=== PATIENT | male | born 1960 | race Caucasian/White ===

== ENCOUNTER 2025-02-25 14:50 | Emergency (ER) | payer BC, SELFPAY ==
[2025-02-25 14:53] VITALS: BP 127/78
[2025-02-25 15:04] VITALS: BMI 29.0
[2025-02-25 15:06] VITALS: BP 115/55
[2025-02-25 15:22] LABS: Hematocrit 37.8 % (39.0-52.0); Hemoglobin 12.9 g/dL (13.0-18.0); Mean Corp Hgb Conc. 34.1 g/dL (33.0-37.0); Mean Corpuscular Volume 84.6 fL (80.0-94.0); Nucleated Red Blood Cells % 0 % (-); Platelet Count 270 10^3/uL (130-400); Red Cell Dist. Width 14.2 % (11.5-14.5)
[2025-02-25 15:23] LABS: Urine Character Clear (Clear)
[2025-02-25 15:49] LABS: ALT (SGPT) 18 U/L (0-50); AST (SGOT) 30 U/L (17-59); Albumin 4.7 g/dl (3.5-5.0); Alkaline Phosphatase 57 U/L (38-126); Blood Urea Nitrogen 14 mg/dl (9-20); Calcium 9.7 mg/dl (8.4-10.2); Carbon Dioxide 21 mmol/L (22-30); Chloride 108 mmol/L (98-107); Estimated Creatinine Clearance 85 ml/min; Glucose 105 mg/dl (70-99); Potassium 4.2 mmol/L (3.5-5.1); Sodium 137 mmol/L (135-145); Total Protein 7.8 g/dl (6.3-8.2); eGFR > 60.00
--- NOTE | 2025-02-25 15:50 | EDRN ---
This RN returned to pt's room to check on him. He pulled off his ID band and almost pulled out IV. This RN went out to get new ID. THis RN returned to room again and pt had pulled off all cardiac monitoring leads and was again attempting IV and in
process of putting his clothes on and said to this RN that he was going to start swinging at her and that he is aggressive at this time and will be aggressive towards her. Security called to de escalate the situation. This RN replaced cardiac
monitor and took off his shirt and put sarah back on him. Pt was calmer and Dr. Scott in to see pt. Spouse said that pt had been swinging at her attempting to hurt her.
[2025-02-25 16:01] VITALS: BP 99/41
[2025-02-25 16:04] VITALS: BP 129/79
[2025-02-25 16:18] LABS: Urine Red Blood Cell 0-2 /HPF (0-2); Urine Squamous Cell 0-2 /LPF (Few); Urine White Cell 0-2 /HPF (0-5)
[2025-02-25 16:48] LABS: COVID-19 Antigen Negative (Negative)
--- NOTE | 2025-02-25 16:48 | EDRN ---
Pt calm and sleeping at this time.
--- NOTE | 2025-02-25 16:55 | EDRN ---
Pt again was up pulled ID band off, all leads off and got fully dressed. Pt remains in coherent at this time.
[2025-02-25] MEDS: NSS 1000 IV (16:58)
[2025-02-25 17:05] VITALS: BP 102/66
--- NOTE | 2025-02-25 17:22 | EDRN ---
This RN spoke w/ Dr. Scott and pt is he decides to leave per Dr. Scott is lucid enough to make this decision and can leave.
--- NOTE | 2025-02-25 17:30 | EDRN ---
Pt stated he wants to leave again. Dr. Scott TT'd and said he will be in soon. Pt notified.
--- NOTE | 2025-02-25 17:38 | ED.GENMED ---
History of Present Illness
General
Chief Complaint: Change in Mental Status
Source: patient and spouse
Time Seen by Provider: 02/25/25 15:12
History of Present Illness
History of Present Illness:
Note:
CHIEF COMPLAINT(S)
Head cold with associated symptoms of reduced appetite and restlessness.
HISTORY OF PRESENT ILLNESS
The patient is a 64-year-old male who presents with symptoms starting approximately two days ago, consistent with a head cold. The patient described feeling 'stuffed up' and experienced a significant loss of appetite, stating, 'I could eat anything.
I just take the leg.' The patient has been primarily bedridden since the onset of symptoms on Friday night. The patient reports no significant fever, though his temperature was reportedly 99�F. The patient disclosed taking Librium and Requip,
medications intended for anxiety and restless legs, respectively, which were obtained from a family member. The patient mentioned feeling agitated and disoriented since taking these medications. The patient�s family also noted episodes of odd
behavior, such as talking to himself and confusion about the day of the week. Further, the patient acknowledges consuming a small amount of alcohol but denies any drug use.
PAST MEDICAL AND SURGICAL HISTORY
History of a pulmonary embolism treated six months ago.
CHRONIC MEDICAL CONDITIONS SIGNIFICANTLY AFFECTING CARE
History of pulmonary embolism.
SOCIAL DETERMINANTS AFFECTING HEALTH
The patient mentioned vaping and consuming approximately five alcoholic drinks a week. The patient expressed a willingness to reduce alcohol consumption.
ALLERGIES
Sulfa medications.
MEDICATIONS
Librium and Requip, taken irregularly without formal prescription.
REVIEW OF SYSTEMS
- General: Fatigue and malaise.
- Respiratory: Congestion reported as 'stuffed up.'
- Neurological: Reporting restlessness and confusion.
- Gastrointestinal: Reduced appetite, no reported diarrhea or abdominal pain.
PHYSICAL EXAM
General: Alert, no acute distress.
Skin: Warm, dry.
Head: Normocephalic, atraumatic.
Neck: Supple, trachea midline.
Eyes, Ears, Nose, Mouth, and Throat: Oral mucosa moist.
Cardiovascular: Normal peripheral perfusion, No edema.
Respiratory: Respirations are non-labored.
Gastrointestinal: Abdomen nondistended.
Back: Normal range of motion, Normal alignment.
Musculoskeletal: Normal range of motion, normal strength.
Neurological: Alert and oriented to person, place, time, and situation, No focal neurological deficit observed.
Psychiatric: Cooperative, appropriate mood and affect.
PROBLEM LIST
Acute Problems:
1. Symptoms of a head cold.
2. Possible medication misuse leading to agitation and confusion.
3. Risk of dehydration due to reduced oral intake.
Chronic Problems:
1. History of pulmonary embolism, currently on anticoagulation therapy.
PLAN
1. COVID-19 testing due to the recent onset of upper respiratory symptoms.
2. Blood tests to evaluate kidney function, liver function, and complete blood count (CBC).
3. Intravenous hydration to address potential dehydration.
4. Review and discontinue current unprescribed medications (Librium and Requip) for safety.
5. Monitor patients response to hydration and check for improvement in alertness and orientation.
DIFFERENTIAL DIAGNOSIS
The Differential Diagnosis includes, in no particular order and is not limited to:
1. Acute upper respiratory infection (possible viral etiology).
2. COVID-19.
3. Medication-related confusion/agitation.
4. Anxiety or underlying psychiatric disorder.
5. Dehydration due to inadequate fluid intake.
6. Delirium due to polypharmacy.
7. Alcohol withdrawal or interaction.
8. Metabolic or electrolyte imbalance.
9. Hypoglycemia or other systemic illness.
10. Exacerbation of a pre-existing neurological condition.
Disposition:
SUMMARY OF ENCOUNTER
The patient is a 64-year-old male who presented to the emergency department with altered behavior after taking non-prescribed medications Librium (chlordiazepoxide) and Requip (ropinirole). He exhibited low-grade fever and symptoms consistent with a
head cold, although COVID-19 testing was negative. Laboratory tests showed normal white blood cell count, hemoglobin level, and platelet count with no left shift on CBC. Basic chemistry panel showed normal creatinine and sodium levels with a
bicarbonate level of 21 and blood glucose of 105 mg/dL, which is slightly elevated. Urinalysis was grossly unremarkable. Upon reassessment, the patients mental status was clearer, and his family, particularly his spouse, noted improvement. It is
suspected that his symptoms were related to the intake of medications that he had never used before.
DISPOSITION
The patient was offered overnight observation for close monitoring, but he declined and instead opted to return home under the supervision of his spouse.
ASSESSMENT
The patients altered mental status and agitation are likely due to the misuse of Librium and Requip. The improvement in symptoms upon reassessment suggests a transient reaction to the medications.
PLAN
The patient was advised to avoid taking medications not prescribed to him. His spouse will monitor him closely at home and return him to the emergency department if symptoms worsen.
INDEPENDENT REVIEW OF LABS AND INTERPRETATION OF TESTS
My independent review of the CBC shows normal white blood cell count at 7.5, hemoglobin at 12.9, and platelet count as normal, with no left shift noted. My independent review of the chemistry panel indicates normal creatinine and sodium levels, with
bicarbonate at 21 and slightly elevated blood glucose at 105 mg/dL. My independent interpretation of the COVID-19 test is negative.
PATIENT EDUCATION AND COUNSELING
The patient was counseled on the importance of avoiding taking medications that are not prescribed to him and the potential risks associated with medication misuse.
FOLLOW-UP INSTRUCTIONS
His spouse will monitor him closely at home. They were advised to return to the emergency department if his symptoms worsen.
MEDICATION RECONCILIATION
The patient was advised against the consumption of Librium (chlordiazepoxide) and Requip (ropinirole), which he took without a prescription.
MEDICAL DECISION MAKING
- Complexity of Data Reviewed: Chronic conditions affecting care include a history of pulmonary embolism. Differential diagnoses considered include acute upper respiratory infection, COVID-19, medication-related confusion/agitation, anxiety,
dehydration, delirium due to polypharmacy, alcohol withdrawal interaction, metabolic or electrolyte imbalance, hypoglycemia, and exacerbation of a pre-existing neurological condition.
- Data:
- Category 1: Laboratory tests reviewed included CBC, chemistry panel, and COVID-19 testing.
- Category 2: Input from independent historians, specifically the patients spouse, was considered regarding the patients mental status.
- Risk: Consideration of Admission/Observation: Escalation of care including admission/observation was considered due to the patients altered mental status. Ultimately, the patient was deemed safe for discharge under supervision at home due to
improvement in status upon reassessment, stable vitals, and his agreement and reliability for follow-up.
DIAGNOSIS
1. Altered mental status due to non-prescribed medication use (ICD-10: R41.0)
2. Acute upper respiratory infection, unspecified (ICD-10: J06.9)
Phy Exam
Physical Exam
Physical Exam:
.
Course
Orders/Labs/Results
Orders:
Orders
02/25/25 15:11
Cardiac Monitoring- Treatment ONCE
02/25/25 15:13
Complete Blood Count/With Diff Urgent
Comprehensive Metabolic Panel Urgent
Urinalysis Reflex To Culture Urgent
Date Specimen was Collected: 02/25/25
Time Specimen was Collected: 15:11
Urine Microscopic Reflex Cult Urgent
02/25/25 16:08
COVID-19 Antigen Urgent
Source: Nasal Swab
Influenza A+B Rapid Molecular Urgent
BRAXTON Source: Nasal Swab
Specimen Description:
02/25/25 16:52
0.9% Sodium Chloride 1000 ml [Nss] 1,000 ml IV BOLUS
Abnormal Lab Results
02/25/25
15:13
RBC 4.47 L 10^6/uL
(4.70-6.10)
Hgb 12.9 L g/dL
(13.0-18.0)
Hct 37.8 L %
(39.0-52.0)
Lymphocytes % 16.9 L %
(20.5-51.1)
Chloride 108 H mmol/L
(98-107)
Carbon Dioxide 21 L mmol/L
(22-30)
Glucose 105 H mg/dl
(70-99)
Urine Ketones 1+ A
(Negative)
Urine Albumin (Reflex) 1+ A
(Neg - Trace)
02/25/25 15:13
02/25/25 15:13
Vital Signs
Initial and Last Documented VS:
Initial Vital Signs
Temp Pulse Resp BP Pulse Ox
99.4 F 72 28 127/78 93
02/25/25 14:53 02/25/25 14:53 02/25/25 14:53 02/25/25 14:53 02/25/25 14:53
Last Documented Vital Signs
Temp Pulse Resp BP Pulse Ox
99.4 F 71 19 102/66 96
02/25/25 14:53 02/25/25 17:30 02/25/25 17:30 02/25/25 17:05 02/25/25 17:05
*Pulse Oximetry
SaO2: 96
Oxygen Mode of Delivery: Room air
Patient hypoxic: no
*Critical Care Note
Total Time (30-74mins, 75-104mins- exclusive of procedures): Not Applicable
ED Attending Note
-
Portions of this chart may have been created with voice recognition software.� Occasional wrong word or��sound alike� substitutions may have occurred due to the inherent limitations of voice recognition software.
Discharge Plan
Departure
Patient Disposition: Home (Routine Discharge)
Date of Disposition: 02/25/25
Time of Disposition: 17:41
Patient with high blood pressure during this ER visit?: No
Discharge Problem:
Medication adverse effect, Acute upper respiratory infection, Acute alteration in mental status
Instructions: Altered Mental Status (DC)
Referrals:
Corazon Richard CRNP [Family Provider, Family Practice]
Activity Restrictions/Additional Instructions:
Please avoid taking other peoples medications.
Please drink plenty of fluids and rest. Return immediately for changes in mentation, weakness of any kind, motor weakness, vomiting, fevers, shortness of breath or any other concerns.
Interventions
Interventions:
*Risk Screen - Suicide Last Done: 02/25/25 14:53
*General Assessment Last Done: 02/25/25 14:53
*Neglect/Abuse Screening Last Done: 02/25/25 14:53
*ED- Fall Risk Assessment Last Done: 02/25/25 15:03
*ED COVID-19 Vaccine History Last Done: 02/25/25 15:03
*ED Influenza Vaccine History Last Done: 02/25/25 15:03
ED- Pulmonary Assessment Last Done: 02/25/25 15:35
ED- Neurological Assessment Last Done: 02/25/25 15:35
ED- Cardiac Assessment Last Done: 02/25/25 15:35
Discharge Date and Time
Print Language: ERITREAN
== END 2025-02-25 17:54 | disposition home or self-care (01) ==
LOC: EMR 14:50
PROVIDERS: Emergency Medicine; EMERGENCY PHYSICIAN Emergency Medicine; FAMILY PHYSICIAN Nurse Practitioner Family
DX: J06.9 Acute upper respiratory infection, unspecified (principal); T50.905A Adverse effect of unspecified drugs, medicaments and biological substances, initial encounter; R41.82 Altered mental status, unspecified; Y92.9 Unspecified place or not applicable; F41.9 Anxiety disorder, unspecified; G25.81 Restless legs syndrome; Z74.01 Bed confinement status; Z86.711 Personal history of pulmonary embolism; Z88.2 Allergy status to sulfonamides
CPT/HCPCS: 99283; 80053; 81003; 81015; 85025; 87502; 87811